=== PATIENT | female | born 1985 | race Caucasian/White ===

== ENCOUNTER 2017-06-05 17:35 | Emergency (ER) | payer OTHER ==
[~2017-06-05] VITALS: Ht 160 cm; Wt 73.9 kg
[~2017-06-05 17:35] MED LIST: AMOX1TAB12 PO; PRENATAL TABLE1 EACH; TUSSI PRES-B L120 M1 PO
== END 2017-06-05 22:00 | disposition home or self-care (01) ==
LOC: ER 17:35
DX: S93.491A Sprain of other ligament of right ankle, initial encounter (principal); X50.9XXA Other and unspecified overexertion or strenuous movements or postures, initial encounter; Y93.89 Activity, other specified; Y92.89 Other specified places as the place of occurrence of the external cause; Y99.8 Other external cause status

== ENCOUNTER 2017-08-07 12:06 | Emergency (ER) | payer OTHER ==
[~2017-08-07] VITALS: Ht 160 cm; Wt 77.6 kg
== END 2017-08-07 16:08 | disposition home or self-care (01) ==
LOC: ER 12:06
DX: O20.0 Threatened abortion (principal)

== ENCOUNTER 2018-06-17 10:38 | Emergency (ER) | payer OTHER ==
[~2018-06-17] VITALS: Ht 160 cm; Wt 86.2 kg
[2018-06-17] MEDS ORDERED: PRENATAL + DHA1 EAC1 PO (10:51)
== END 2018-06-17 13:53 | disposition home or self-care (01) ==
LOC: ER 10:38
DX: O98.511 Other viral diseases complicating pregnancy, first trimester (principal); B34.9 Viral infection, unspecified; Z34.01 Encounter for supervision of normal first pregnancy, first trimester

== ENCOUNTER 2019-01-09 17:48 | Emergency (ER) | payer OTHER ==
[~2019-01-09] VITALS: Ht 162.6 cm; Wt 81.6 kg
[~2019-01-09 17:48] MED LIST changes: +PRENATAL + DHA1 EAC1 PO
== END 2019-01-09 21:24 | disposition home or self-care (01) ==
LOC: ER 17:48
DX: R51 Headache (principal); M54.2 Cervicalgia

== ENCOUNTER 2019-11-14 19:41 | Emergency (ER) | payer OTHER ==
[~2019-11-14] VITALS: Ht 160 cm; Wt 92.5 kg
== END 2019-11-14 22:40 | disposition home or self-care (01) ==
LOC: ER 19:41
DX: R51 Headache (principal); Z03.818 Encounter for observation for suspected exposure to other biological agents ruled out

== ENCOUNTER 2020-09-17 11:51 | Emergency (ER) | payer OTHER ==
[~2020-09-17] VITALS: Ht 160 cm; Wt 84.8 kg
[2020-09-17] MEDS ORDERED: AMOX-CLAV 875-1 EACH PO (15:05)
[2020-09-17] MEDS ORDERED: CLARITIN-D 121 EACH PO (15:05)
[2020-09-17] MEDS ORDERED: TUSSIN DM SYRU118 ML PO (15:05)
== END 2020-09-17 17:28 | disposition home or self-care (01) ==
LOC: ER 11:51
DX: J45.998 Other asthma (principal); R05 Cough; Z11.52 Encounter for screening for COVID-19

== ENCOUNTER 2020-11-28 23:31 | Emergency (ER) | payer OTHER ==
[~2020-11-28] VITALS: Ht 160 cm; Wt 81.6 kg
[~2020-11-28 23:31] MED LIST changes: +AMOX-CLAV 875-1 EACH PO; +CLARITIN-D 121 EACH PO; +TUSSIN DM SYRU118 ML PO
[2020-11-28] MEDS ORDERED: ANTIVER (23:45)
[2020-11-29] MEDS ORDERED: MECLIZINE HCL25 MG PO (08:12)
== END 2020-11-29 09:14 | disposition home or self-care (01) ==
LOC: ER 23:31
DX: R42 Dizziness and giddiness (principal); J32.3 Chronic sphenoidal sinusitis

== ENCOUNTER → 2021-03-05 08:00 | Outpatient (CLI) | payer OTHER ==
[~2021-03-05 08:00] MED LIST changes: +ANTIVER; +MECLIZINE HCL25 MG PO
== END | disposition home or self-care (01) ==
LOC: PPH VACUNA 08:00
PROVIDERS: ATTEND Emergency Medicine Pediatric Emergency Medicine
DX: Z23 Encounter for immunization (principal)

== ENCOUNTER 2021-05-20 13:59 | Emergency (ER) | payer OTHER ==
[~2021-05-20] VITALS: Ht 160 cm; Wt 77.1 kg
== END 2021-05-20 18:24 | disposition home or self-care (01) ==
LOC: ER 13:59
DX: J32.0 Chronic maxillary sinusitis (principal)

== ENCOUNTER 2022-07-07 13:38 | Emergency (ER) | payer OTHER ==
[~2022-07-07] VITALS: Ht 160 cm; Wt 77.1 kg
[2022-07-07] MEDS ORDERED: KETO10TA2 PO (14:50)
[2022-07-07] MEDS ORDERED: NORFLEX100MG PO (14:50)
== END 2022-07-07 15:58 | disposition home or self-care (01) ==
LOC: ER 13:38
DX: M54.2 Cervicalgia (principal)

== ENCOUNTER 2022-07-12 20:40 | Emergency (ER) | payer OTHER ==
[~2022-07-12] VITALS: Ht 160 cm; Wt 77.1 kg
[~2022-07-12 20:40] MED LIST changes: +KETO10TA2 PO; +NORFLEX100MG PO
== END 2022-07-12 21:55 | disposition home or self-care (01) ==
LOC: ER 20:40
DX: M54.2 Cervicalgia (principal); G44.89 Other headache syndrome

== ENCOUNTER 2022-08-31 18:29 | Emergency (ER) | payer OTHER ==
[~2022-08-31] VITALS: Ht 160 cm; Wt 77.1 kg
[2022-08-31] MEDS ORDERED: DICLOFENAC SODI75 MG PO (22:41)
== END 2022-08-31 22:43 | disposition home or self-care (01) ==
LOC: ER 18:29
DX: R59.0 Localized enlarged lymph nodes (principal)

== ENCOUNTER 2023-01-28 17:04 | Emergency (ER) | payer OTHER ==
[~2023-01-28] VITALS: Ht 162.6 cm; Wt 78.5 kg
[~2023-01-28 17:04] MED LIST changes: +DICLOFENAC SODI75 MG PO
[2023-01-28 18:51] LABS: HEMATOCRIT 35.5 % (36.0-45.00); HEMOGLOBIN 12.2 g/dL (12.0-15.00); MEAN CELL VOLUME 86.1 fL (80.00-100.00); MEAN CORPUSCULAR HEMOGLOBIN 29.6 pg (27.00-32.0); MEAN CORPUSCULAR HGB CONC 34.3 g/dl (32.0-36.0); PLATELET COUNT 270 K/uL (150-450); RED BLOOD COUNT 4.12 M/uL (4.00-6.00); RED CELL DISTRIBUTION WIDTH 13.5 % (11.5-14.5)
[2023-01-28] MEDS ORDERED: MEDROLPACK PO (19:55)
[2023-01-28] MEDS ORDERED: ZITHROMAX TRI-500 MG PO (19:55)
[2023-01-28] MEDS ORDERED: IPRAT-ALBUT 0.5-3 ML IH (19:55)
== END 2023-01-28 21:20 | disposition home or self-care (01) ==
LOC: ER 17:04
PROVIDERS: General Practice
DX: J45.909 Unspecified asthma, uncomplicated (principal); Z20.822 Contact with and (suspected) exposure to COVID-19

== ENCOUNTER 2023-01-31 14:58 | Emergency (ER) | payer OTHER ==
[~2023-01-31] VITALS: Ht 160 cm; Wt 79.4 kg
[~2023-01-31 14:58] MED LIST changes: +IPRAT-ALBUT 0.5-3 ML IH; +MEDROLPACK PO; +ZITHROMAX TRI-500 MG PO
== END 2023-01-31 20:11 | disposition home or self-care (01) ==
LOC: ER 14:58
DX: J45.998 Other asthma (principal); Z20.822 Contact with and (suspected) exposure to COVID-19

== ENCOUNTER 2024-01-31 17:31 | Emergency (ER) | payer OTHER ==
[~2024-01-31] VITALS: Ht 160 cm; Wt 81.6 kg
[2024-01-31] MEDS ORDERED: KETOROLAC TROMETHAMINE 30 MG VIAL IM STA (22:03)
[2024-01-31] MEDS ORDERED: ORPHENADRINE CITRATE 30 MG/ML AMPUL IM STA (22:03)
[2024-01-31] MEDS ORDERED: DICLOFENAC POTA50 MG PO (23:54)
[2024-01-31] MEDS ORDERED: ZANAFLEX4 M1 PO (23:54)
== END 2024-02-01 00:35 | disposition home or self-care (01) ==
LOC: ER 17:33
DX: G44.209 Tension-type headache, unspecified, not intractable (principal)
CPT/HCPCS: 96372; 99282; J1885; J2360

== ENCOUNTER 2024-09-28 21:06 | Emergency (ER) | payer OTHER ==
[~2024-09-28] VITALS: Ht 160 cm; Wt 79.4 kg
[~2024-09-28 21:06] MED LIST changes: +DICLOFENAC POTA50 MG PO; +ZANAFLEX4 M1 PO
[2024-09-28 22:19] LABS: COVID-19 AG POSITIVE (NEGATIVE)
[2024-09-28 22:27] LABS: BASO % 0.6 % (0.1-1.2); EOS # 0.29 (0.04-0.54); EOS % 4.1 % (0.7-7.0); LYMPH # 0.90 (1.18-3.74); LYMPH % 12.6 % (19.3-53.1); MEAN PLATELET VOLUME 11.10 fl (9.4-12.4); MONO # 0.70 (0.24-0.82); MONO % 9.8 % (4.7-12.5); NEUT # 5.21 (1.56-6.13); NEUT % 72.6 % (34.0-71.1); RED CELL DISTRIBUTION WIDTH 14.1 % (11.6-14.4)
== END 2024-09-28 22:38 | disposition home or self-care (01) ==
LOC: ER 21:06
PROVIDERS: Emergency Medicine
DX: U07.1 COVID-19 (principal)

== ENCOUNTER 2024-11-15 15:04 | Emergency (ER) | payer OTHER ==
[~2024-11-15] VITALS: Ht 160 cm; Wt 79.4 kg
[2024-11-15] MEDS ORDERED: LEVALBUTEROL HCL 1.25 MG/3 ML SOLUTION IH ONE ×2 (16:45→17:36)
[2024-11-15] MEDS ORDERED: ACETAMINOPHEN 500 MG GEL..CAP PO ONE ×2 (16:45→17:15)
[2024-11-15] MEDS ORDERED: CETIRIZINE HCL 5 MG/5 ML ML PO ONE (16:45)
[2024-11-15] MEDS ORDERED: CETIRIZINE HCL 5MG/5ML BLIST.PACK PO ONE (17:15)
[2024-11-15 17:38] LABS: BASO % 0.6 % (0.1-1.2); EOS # 0.62 (0.04-0.54); EOS % 6.2 % (0.7-7.0); LYMPH # 2.59 (1.18-3.74); LYMPH % 25.7 % (19.3-53.1); MEAN PLATELET VOLUME 10.90 fl (9.4-12.4); MONO # 0.72 (0.24-0.82); MONO % 7.1 % (4.7-12.5); NEUT # 6.05 (1.56-6.13); NEUT % 60.1 % (34.0-71.1); RED CELL DISTRIBUTION WIDTH 14.0 % (11.6-14.4)
[2024-11-15 19:32] LABS: COVID-19 AG NEGATIVE (NEGATIVE)
[2024-11-15] MEDS ORDERED: LEVALBUTER0.63 MG/3 IH (19:51)
[2024-11-15] MEDS ORDERED: ZYRTEC10 MG PO (19:51)
[2024-11-15] MEDS ORDERED: SINGULAIR10 MG PO (19:51)
[2024-11-15] MEDS ORDERED: AZITHROMYCIN500 MG PO (19:51)
[2024-11-15] MEDS ORDERED: PEPCID AC20 MG PO (19:51)
[2024-11-15] MEDS ORDERED: BENZONATATE200 M1 PO (19:51)
== END 2024-11-15 20:03 | disposition home or self-care (01) ==
LOC: ER 15:21
PROVIDERS: General Practice
DX: B34.9 Viral infection, unspecified (principal); Z20.822 Contact with and (suspected) exposure to COVID-19; Z87.09 Personal history of other diseases of the respiratory system

== ENCOUNTER 2025-01-06 04:50 | Emergency (ER) | payer OTHER ==
[~2025-01-06] VITALS: Ht 160 cm; Wt 79.4 kg
[~2025-01-06 04:50] MED LIST changes: +AZITHROMYCIN500 MG PO; +BENZONATATE200 M1 PO; +LEVALBUTER0.63 MG/3 IH; +PEPCID AC20 MG PO; +SINGULAIR10 MG PO; +ZYRTEC10 MG PO
[2025-01-06] MEDS ORDERED: KETOROLAC TROMETHAMINE 30 MG VIAL IU ONE (06:00)
[2025-01-06] MEDS ORDERED: 0.9 % SODIUM CHLORIDE 1,000 ML IV SCH (06:00)
[2025-01-06] MEDS ORDERED: FAMOtidine 10 MG/ML (4ML VIAL) IV PUSH ONE (06:00)
[2025-01-06] MEDS ORDERED: ONDANSETRON HCL 4 MG in 0.9 % SODIUM CHLORIDE 50 ML IV ONE (06:00)
[2025-01-06] MEDS ORDERED: KETOROLAC TROMETHAMINE 30 MG VIAL ONE (07:13)
[2025-01-06] MEDS ORDERED: ONDANSETRON HCL 2 MG/ML VIAL ONE (07:13)
[2025-01-06] MEDS ORDERED: FAMOTIDINE/PF 20 MG/2 ML VIAL ONE (07:13)
[2025-01-06 07:57] LABS: BASO % 0.4 % (0.1-1.2); EOS # 0.30 (0.04-0.54); EOS % 2.9 % (0.7-7.0); LYMPH # 2.00 (1.18-3.74); LYMPH % 19.2 % (19.3-53.1); MEAN PLATELET VOLUME 11.00 fl (9.4-12.4); MONO # 0.64 (0.24-0.82); MONO % 6.1 % (4.7-12.5); NEUT # 7.41 (1.56-6.13); NEUT % 71.1 % (34.0-71.1); RED CELL DISTRIBUTION WIDTH 13.7 % (11.6-14.4)
[2025-01-06 08:27] LABS: INR 1.01
[2025-01-06] MEDS ORDERED: PANTOPRAZOLE SODIUM 40 MG/VIAL VIAL IV STA (08:34)
[2025-01-06 08:36] LABS: ALT/SGPT 26 U/L (12-78); AST/SGOT 13 U/L (15-37); BILIRUBIN TOTAL 0.50 mg/dL (0.3-1.2); BUN CREA RATIO 21 (7.0-25.0); CREATININE SERUM 0.70 mg/dL (0.55-1.02); GFR 93.65; GLOBULINA 3.7 G/DL (2.4-3.5); GLUCOSE FASTING 92 mg/dL (65-100); OSMOLALITY SERUM 280 MOSM/KG (275-295)
[2025-01-06 08:39] LABS: HCG QUANTITATIVE < 1 mUI/mL (1-3)
[2025-01-06 08:57] LABS: URINE APPEARANCE Clear; URINE BILIRRUBIN Negative (NEGATIVE); URINE BLOOD Negative; URINE COLOR Yellow; URINE GLUCOSE Negative (NEGATIVE); URINE KETONE Negative (NEGATIVE); URINE LEUKOCYTE Negative; URINE NITRATE Negative; URINE PROTEIN Negative (NEGATIVE); URINE UROBILINOGEN 0.2 E.U./dl
[2025-01-06 09:01] LABS: URINE BACTERIA 53.9 uL (0.0-1933); URINE EPITHELIAL CELLS 8.7 uL (0.0-38.8); URINE WBC 2.1 uL (0.0-23.2)
[2025-01-06 09:02] LABS: URINE CAST 0.58 uL (0.0-1.40); URINE RBC 1.0 uL (0.0-20.8)
[2025-01-06 09:46] LABS: ERYTHROCYTE SEDIMENTATION RATE 34 mm/hr (0-20)
[2025-01-06] MEDS ORDERED: PEPCID AC20 MG PO (11:29)
[2025-01-06] MEDS ORDERED: PROTONIX40 M1 PO (11:29)
== END 2025-01-06 11:53 | disposition home or self-care (01) ==
LOC: ER 04:50
PROVIDERS: General Practice
DX: K52.89 Other specified noninfective gastroenteritis and colitis (principal); R10.32 Left lower quadrant pain; J45.909 Unspecified asthma, uncomplicated; R10.24 Suprapubic pain

== ENCOUNTER 2025-01-18 20:13 | Emergency (ER) | payer OTHER ==
[~2025-01-18] VITALS: Ht 160 cm; Wt 79.4 kg
[~2025-01-18 20:13] MED LIST changes: +PROTONIX40 M1 PO
[2025-01-18] MEDS ORDERED: GUAIFENESIN/DEXTROMETHORPHAN 100MG/10ML BLIST.PACK PO ONE (20:45)
[2025-01-18] MEDS ORDERED: CETIRIZINE HCL 5 MG/5 ML ML PO ONE (20:45)
[2025-01-18] MEDS ORDERED: CETIRIZINE HCL 5MG/5ML BLIST.PACK PO ONE (20:50)
[2025-01-18] MEDS ORDERED: GUAIFENESIN 200 MG/10 ML BLIST.PACK PO ONE (20:50)
[2025-01-18 21:06] LABS: BASO % 0.7 % (0.1-1.2); EOS # 0.43 (0.04-0.54); EOS % 5.4 % (0.7-7.0); LYMPH # 1.94 (1.18-3.74); LYMPH % 24.2 % (19.3-53.1); MEAN PLATELET VOLUME 10.80 fl (9.4-12.4); MONO # 0.72 (0.24-0.82); MONO % 9.0 % (4.7-12.5); NEUT # 4.85 (1.56-6.13); NEUT % 60.6 % (34.0-71.1); RED CELL DISTRIBUTION WIDTH 13.4 % (11.6-14.4)
[2025-01-18 21:52] LABS: COVID-19 AG NEGATIVE (NEGATIVE)
[2025-01-18] MEDS ORDERED: ZYRTEC10 MG PO (22:12)
[2025-01-18] MEDS ORDERED: TUSSIN DM LIQU118 ML PO (22:12)
[2025-01-18] MEDS ORDERED: PROAIR RESPICL90 MCG IH (22:12)
[2025-01-18] MEDS ORDERED: SINGULAIR10 MG PO (22:12)
== END 2025-01-18 22:43 | disposition home or self-care (01) ==
LOC: ER 20:13
PROVIDERS: General Practice
DX: J06.9 Acute upper respiratory infection, unspecified (principal); Z20.822 Contact with and (suspected) exposure to COVID-19

== ENCOUNTER → 2025-02-22 | Emergency (ER) | payer OTHER ==
[~2025-02-22] VITALS: Ht 160 cm; Wt 77.1 kg
[~2025-02-22] MED LIST changes: +CEFTRIAXONE SODIUM 1,000 MG VIAL IM STA; +DEXAMETHASONE SODIUM PHOSPHATE 4 MG/ML VIAL IM STA; +DEXAMETHASONE SODIUM PHOSPHATE 4 MG/ML VIAL ONE; +DIPHENHYDRAMINE HCL 50 MG/ML VIAL 1ML IM STA; +DIPHENHYDRAMINE HCL 50 MG/ML VIAL 1ML ONE; +PROAIR RESPICL90 MCG IH; +TUSSIN DM LIQU118 ML PO
[2025-02-22 21:23] LABS: BASO % 0.6 % (0.1-1.2); EOS # 0.35 (0.04-0.54); EOS % 3.9 % (0.7-7.0); LYMPH # 3.32 (1.18-3.74); LYMPH % 36.8 % (19.3-53.1); MEAN PLATELET VOLUME 10.80 fl (9.4-12.4); MONO # 0.67 (0.24-0.82); MONO % 7.4 % (4.7-12.5); NEUT # 4.62 (1.56-6.13); NEUT % 51.1 % (34.0-71.1); RED CELL DISTRIBUTION WIDTH 13.7 % (11.6-14.4)
[2025-02-22 21:40] LABS: COVID-19 AG NEGATIVE (NEGATIVE)
== END | disposition home or self-care (01) ==
LOC: ER 17:40
PROVIDERS: General Practice
DX: J10.1 Influenza due to other identified influenza virus with other respiratory manifestations (principal); Z20.822 Contact with and (suspected) exposure to COVID-19; R00.2 Palpitations

== ENCOUNTER 2025-03-04 21:38 | Emergency (ER) | payer OTHER ==
[~2025-03-04] VITALS: Ht 160 cm; Wt 79.4 kg
[~2025-03-04 21:38] MED LIST changes: -CEFTRIAXONE SODIUM 1,000 MG VIAL IM STA; -DEXAMETHASONE SODIUM PHOSPHATE 4 MG/ML VIAL IM STA; -DEXAMETHASONE SODIUM PHOSPHATE 4 MG/ML VIAL ONE; -DIPHENHYDRAMINE HCL 50 MG/ML VIAL 1ML IM STA; -DIPHENHYDRAMINE HCL 50 MG/ML VIAL 1ML ONE
[2025-03-04] MEDS ORDERED: KETOROLAC TROMETHAMINE 60 MG VIAL IM ONE (23:45)
[2025-03-04] MEDS ORDERED: ORPHENADRINE CITRATE 30 MG/ML AMPUL IM ONE (23:45)
[2025-03-05] MEDS ORDERED: ORPHENADRINE CITRATE 30 MG/ML AMPUL ONE (00:02)
[2025-03-05] MEDS ORDERED: KETOROLAC TROMETHAMINE 60 MG VIAL IM ONE (00:02)
[2025-03-05] MEDS ORDERED: NORFLEX100MG PO (01:03)
== END 2025-03-05 01:20 | disposition home or self-care (01) ==
LOC: ER 21:39
DX: M25.562 Pain in left knee (principal)